=== PATIENT | female | born 1995 | race Caucasian/White ===

== ENCOUNTER → 2016-12-29 | Outpatient (CLI) | payer MEDICAID, SELFPAY ==
[~2016-12-29] MED LIST: MYLASSUD PO; NICO14PA TD; NICO21DI5 TD; NO HOME MEDS; NORCOTAB PO; PANT40TA2 PO; REGL5TAB2 PO; SUCR1TA PO; TUMS500C PO
== END ==
LOC: M OUTALCOH 08:56
PROVIDERS: ATTEND Psychiatry & Neurology Psychiatry
DX: F11.20 Opioid dependence, uncomplicated (principal)

== ENCOUNTER → 2018-03-23 | Outpatient (CLI) | payer MEDICAID, SELFPAY ==
[2018-03-23 11:37] LABS: HEMATOCRIT 38.8 % (36.0-47.0); HEMOGLOBIN 12.9 g/dl (12.0-15.5); MEAN CORPUSCULAR HEMOGLOBIN 31.2 pg (27.0-33.0); MEAN CORPUSCULAR HGB CONC 33.2 g/dl (32.0-36.5); MEAN CORPUSCULAR VOLUME 93.7 fl (80.0-96.0); PLATELET COUNT, AUTOMATED 253 10^3/uL (150-450); RED BLOOD COUNT 4.14 10^6/uL (4.00-5.40); RED CELL DISTRIBUTION WIDTH 13.2 % (11.5-14.5); WHITE BLOOD COUNT 12.5 10^3/uL (4.0-10.0)
[2018-03-23 11:58] LABS: ALBUMIN 3.7 GM/DL (3.2-5.2); ALBUMIN/GLOBULIN RATIO 1.16 (1.00-1.93); ALKALINE PHOSPHATASE 84 U/L (45-117); ALT/SGPT 19 U/L (12-78); ANION GAP 5 MEQ/L (8-16); AST/SGOT 16 U/L (7-37); BILIRUBIN,TOTAL 0.3 MG/DL (0.2-1.0); BLOOD UREA NITROGEN 6 MG/DL (7-18); CALCIUM LEVEL 8.7 MG/DL (8.5-10.1); CARBON DIOXIDE LEVEL 27 MEQ/L (21-32); CHLORIDE LEVEL 109 MEQ/L (98-107); CREATININE FOR GFR 0.85 MG/DL (0.55-1.30); GLOMERULAR FILTRATION RATE > 60.0 (>60); GLUCOSE, FASTING 128 MG/DL (70-100); POTASSIUM SERUM 4.1 MEQ/L (3.5-5.1); SODIUM LEVEL 141 MEQ/L (136-145); TOTAL PROTEIN 6.9 GM/DL (6.4-8.2)
[2018-03-23 12:12] LABS: HEPATITIS B SURFACE ANTIGEN NEGATIVE (NEGATIVE)
[2018-03-23 12:40] LABS: HEPATITIS C VIRUS ABY INDEX < 0.0 INDEX (<0.8); HIV 1&2 SCREEN CENTAUR NEGATIVE (NEGATIVE)
[2018-03-23 13:19] LABS: CHLAMYDIA DNA AMPLIFICATION NEGATIVE (NEGATIVE); GC DNA AMPLIFICATION NEGATIVE (NEGATIVE)
== END ==
LOC: M LAB 10:35
DX: F11.20 Opioid dependence, uncomplicated (principal)
CPT/HCPCS: 93005

== ENCOUNTER 2020-04-04 23:30 | Emergency (ER) | payer MEDICAID, OTHER, SELFPAY ==
[~2020-04-04] VITALS: Ht 175.3 cm; Wt 63.6 kg
[~2020-04-04 23:30] MED LIST changes: +HYDR-3715 PO; -NICO21DI5 TD; +NICO21DI6 TD; -NORCOTAB PO; -PANT40TA2 PO; +PANT40TA3 PO
[2020-04-05 01:25] LABS: HEMATOCRIT 40.4 % (36.0-47.0); HEMOGLOBIN 12.6 g/dl (12.0-15.5); MEAN CORPUSCULAR HEMOGLOBIN 29.2 pg (27.0-33.0); MEAN CORPUSCULAR HGB CONC 31.2 g/dl (32.0-36.5); MEAN CORPUSCULAR VOLUME 93.5 fl (80.0-96.0); PLATELET COUNT, AUTOMATED 328 10^3/uL (150-450); RED BLOOD COUNT 4.32 10^6/uL (4.00-5.40); WHITE BLOOD COUNT 10.5 10^3/uL (4.0-10.0)
[2020-04-05 01:46] LABS: HCG, SERUM QUALITATIVE NEGATIVE (NEGATIVE)
[2020-04-05 01:52] LABS: AMPHETAMINES LEVEL URINE NEGATIVE (NEGATIVE); BARBITURATES URINE NEGATIVE (NEGATIVE); BENZODIAZEPINES URINE NEGATIVE (NEGATIVE); CANNABINOIDS URINE POSITIVE (NEGATIVE); COCAINE METABOLITE URINE NEGATIVE (NEGATIVE); METHADONE URINE NEGATIVE (NEGATIVE); OPIATES URINE POSITIVE (NEGATIVE); PHENCYCLIDINE URINE NEGATIVE (NEGATIVE)
[2020-04-05 02:03] LABS: ACETAMINOPHEN LEVEL < 2.0 UG/ML (10.0-30.0); ALBUMIN 3.3 GM/DL (3.2-5.2); ALT/SGPT 81 U/L (12-78); BILIRUBIN,DIRECT 0.1 MG/DL (0.0-0.2); BILIRUBIN,TOTAL 0.2 MG/DL (0.2-1.0); BLOOD UREA NITROGEN 10 MG/DL (7-18); CALCIUM LEVEL 8.5 MG/DL (8.5-10.1); CARBON DIOXIDE LEVEL 32 MEQ/L (21-32); CHLORIDE LEVEL 106 MEQ/L (98-107); CREATININE FOR GFR 0.62 MG/DL (0.55-1.30); ETHYL ALCOHOL (ETHANOL) < 0.003 % (0.000-0.010); GLOMERULAR FILTRATION RATE > 60.0 (>60); GLUCOSE, FASTING 96 MG/DL (70-100); POTASSIUM SERUM 3.8 MEQ/L (3.5-5.1); SALICYLATE LEVEL < 1.7 MG/DL (5.0-30.0); SODIUM LEVEL 141 MEQ/L (136-145); TOTAL PROTEIN 7.1 GM/DL (6.4-8.2)
[2020-04-05 03:47] VITALS: BP 124/93
== END 2020-04-05 03:53 | disposition home or self-care (01) ==
LOC: M ED 23:30
DX: F43.8 Other reactions to severe stress (principal); F41.9 Anxiety disorder, unspecified; F32.9 Major depressive disorder, single episode, unspecified; G47.00 Insomnia, unspecified; F50.9 Eating disorder, unspecified; F17.210 Nicotine dependence, cigarettes, uncomplicated; F19.10 Other psychoactive substance abuse, uncomplicated
CPT/HCPCS: 36415; 80048; 80076; 80307; 84443; 84703; 85027; 99284; G0480

== ENCOUNTER 2020-11-08 00:27 | Day surgery (SDC) | payer OTHER ==
[~2020-11-08] VITALS: Ht 170.2 cm; Wt 61.4 kg
[~2020-11-08 00:27] MED LIST changes: +PANT40TA29 PO; -PANT40TA3 PO
[2020-11-08] MEDS ORDERED: NS 1,000 ML IV ONE (00:45)
[2020-11-08] MEDS ORDERED: ISOVUE-370 76% 100ML VIAL As Ordered ONE (00:52)
[2020-11-08 01:05] LABS: BASO % 0.4 % (0.0-1.0); EOS # 0.1 10^3/uL (0.0-0.5); EOS % 1.3 % (0.0-3.0); HEMATOCRIT 34.7 % (36.0-47.0); HEMOGLOBIN 10.9 g/dl (12.0-15.5); LYMPH # 2.9 10^3/uL (1.5-5.0); LYMPH % 30.2 % (24.0-44.0); MEAN CORPUSCULAR HEMOGLOBIN 26.8 pg (27.0-33.0); MEAN CORPUSCULAR HGB CONC 31.4 g/dl (32.0-36.5); MEAN CORPUSCULAR VOLUME 85.3 fl (80.0-96.0); MONO # 0.5 10^3/uL (0.0-0.8); MONO % 4.8 % (0.0-5.0); NEUTROPHILS % 62.9 % (36.0-66.0); PLATELET COUNT, AUTOMATED 406 10^3/uL (150-450); RED BLOOD COUNT 4.07 10^6/uL (4.00-5.40); WHITE BLOOD COUNT 9.6 10^3/uL (4.0-10.0)
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
[2020-11-08 01:23] LABS: HCG, SERUM QUALITATIVE NEGATIVE (NEGATIVE)
[2020-11-08] MEDS ORDERED: ONDANSETRON 4MG/2ML VIAL As Ordered ONE (01:25)
[2020-11-08] MEDS ORDERED: MORPHINE 4 MG/ML 1ML VIAL/SYRINGE (J2270) As Ordered ONE (01:25)
[2020-11-08 01:27] LABS: BLOOD UREA NITROGEN 9 MG/DL (7-18); CALCIUM LEVEL 8.4 MG/DL (8.5-10.1); CARBON DIOXIDE LEVEL 28 MEQ/L (21-32); CHLORIDE LEVEL 106 MEQ/L (98-107); GLOMERULAR FILTRATION RATE > 60.0 (>60); GLUCOSE, FASTING 78 MG/DL (70-100); POTASSIUM SERUM 4.2 MEQ/L (3.5-5.1); SODIUM LEVEL 139 MEQ/L (136-145)
[2020-11-08] MEDS: MORPHINE 4 MG/ML 1ML VIAL/SYRINGE (J2270) IV PRN ×2 (01:28→02:46)
[2020-11-08] MEDS ORDERED: ONDANSETRON 4MG/2ML VIAL IV ONE (01:30)
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
[2020-11-08] MEDS ORDERED: ceFAZolin SOD 1 GM in D5W MINI-BAG PLUS 50 ML IV ONE (02:45)
[2020-11-08 03:33] LABS: RSV AMPLIFICATION NEGATIVE (NEGATIVE)
[2020-11-08] MEDS ORDERED: TRANEXAMIC ACID INJection 1,000 MG in D5W 100 ML IV ONE (04:30)
[2020-11-08] MEDS ORDERED: MORPHINE 4 MG/ML 1ML VIAL/SYRINGE (J2270) IV PRN (05:15)
[2020-11-08] MEDS ORDERED: MIDAZOLAM INJ 2MG/2ML VIAL (J2250 PER 1MG) As Ordered ONE (05:41)
[2020-11-08] MEDS ORDERED: fentaNYL 100 MCG/2 ML INJECTION (J3010) As Ordered ONE (05:42)
[2020-11-08] MEDS ORDERED: propofoL 200 MG/20 ML VIAL As Ordered ONE (05:43)
[2020-11-08] MEDS ORDERED: ROCURONIUM BROMIDE 50 MG/5 ML VIAL As Ordered ONE (05:43)
[2020-11-08] MEDS ORDERED: LIDOCAINE 2% 100MG/5ML SDV (FOR ANES.) As Ordered ONE (05:43)
[2020-11-08] MEDS ORDERED: ACETAMINOPHEN 1000MG 100ML IV BTL (OFIRMEV) (J0131 PER 10MG) ONE (06:29)
[2020-11-08] MEDS ORDERED: ceFAZolin 2 GM/D5W 50 ML IV BAG (J0690 PER 500MG) ONE (06:29)
[2020-11-08] MEDS ORDERED: ONDANSETRON 4MG/2ML VIAL ONE (06:33)
[2020-11-08] MEDS ORDERED: dexameTHASONE 4 MG/ML 1ML VIAL (J1100 PER 1MG) ONE (06:33)
[2020-11-08] MEDS ORDERED: propofoL 200 MG/20 ML VIAL ONE (06:43)
[2020-11-08] MEDS ORDERED: ceFAZolin 2 GM/D5W 50 ML IV BAG (J0690 PER 500MG) IV ONE (06:45)
[2020-11-08] MEDS ORDERED: ESMOLOL INJ 100MG/10ML VIAL ONE (06:46)
[2020-11-08] MEDS ORDERED: PHENYLephrine HCL 500 MCG/5 ML (100MCG/ML) SYRINGE (J2370) ONE (06:58)
[2020-11-08] MEDS: fentaNYL 100 MCG/2 ML INJECTION (J3010) IV PRN ×4 (07:37→07:53)
[2020-11-08] MEDS: oxyCODONE 5MG TAB PO PRN ×2 (07:37→08:09)
[2020-11-08] MEDS: HYDROMORPHONE HCL 0.5 MG/ 0.5 ML SYRINGE (J1170 PER 1) IV PRN ×2 (08:00→08:05)
[2020-11-08 08:10] VITALS: BP 119/72
[2020-11-08] MEDS ORDERED: ONDANSETRON 4MG/2ML VIAL IV PRN (09:15)
[2020-11-08] MEDS ORDERED: LR 1,000 ML IV SCH (09:15)
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
== END 2020-11-08 08:22 | disposition home or self-care (01) ==
LOC: M ED 00:27 → M SDC 05:36 → M ED 06:14 → M SDC 08:22
PROVIDERS: ATTEND Orthopaedic Surgery
DX: S71.111A Laceration without foreign body, right thigh, initial encounter (principal); I77.2 Rupture of artery; X99.1XXA Assault by knife, initial encounter; Y92.89 Other specified places as the place of occurrence of the external cause; Y99.9 Unspecified external cause status; F17.218 Nicotine dependence, cigarettes, with other nicotine-induced disorders; F19.20 Other psychoactive substance dependence, uncomplicated; Y93.9 Activity, unspecified
CPT/HCPCS: 20103; 72170; 80047; 80048; 84702; 84703; 85025; 86850; 86900; 86901; 87631; 94760; 96365; 96367; 96375; 96376; 99285; J0131; J0690; J1100; J1170; J2250; J2270; J2370; J2405; J3010; Q9967

== ENCOUNTER 2020-12-01 11:10 | Emergency (ER) | payer OTHER ==
[~2020-12-01] VITALS: Ht 172.7 cm; Wt 62.7 kg
[2020-12-01] MEDS ORDERED: NS 1,000 ML IV ONE (12:15)
[2020-12-01 12:24] LABS: BASO # 0.1 10^3/uL (0.0-0.2); BASO % 0.5 % (0.0-1.0); EOS % 0.3 % (0.0-3.0); HEMATOCRIT 33.9 % (36.0-47.0); HEMOGLOBIN 10.3 g/dl (12.0-15.5); LYMPH # 2.5 10^3/uL (1.5-5.0); MEAN CORPUSCULAR HEMOGLOBIN 26.9 pg (27.0-33.0); MEAN CORPUSCULAR HGB CONC 30.4 g/dl (32.0-36.5); MEAN CORPUSCULAR VOLUME 88.5 fl (80.0-96.0); MONO # 0.8 10^3/uL (0.0-0.8); MONO % 7.9 % (0.0-5.0); NEUTROPHILS # 6.3 10^3/uL (1.5-8.5); NEUTROPHILS % 64.9 % (36.0-66.0); PLATELET COUNT, AUTOMATED 246 10^3/uL (150-450); RED BLOOD COUNT 3.83 10^6/uL (4.00-5.40); WHITE BLOOD COUNT 9.7 10^3/uL (4.0-10.0)
[2020-12-01 12:48] LABS: BLOOD UREA NITROGEN 9 MG/DL (7-18); CALCIUM LEVEL 8.7 MG/DL (8.5-10.1); CARBON DIOXIDE LEVEL 28 MEQ/L (21-32); CHLORIDE LEVEL 103 MEQ/L (98-107); CREATININE FOR GFR 0.52 MG/DL (0.55-1.30); GLOMERULAR FILTRATION RATE > 60.0 (>60); GLUCOSE, FASTING 98 MG/DL (70-100); POTASSIUM SERUM 4.4 MEQ/L (3.5-5.1); SODIUM LEVEL 137 MEQ/L (136-145)
--- OUTSIDE RECORDS SUMMARY | 2020-12-01 12:52 | CCD | Continuity of Care Document ---
Author Author Harmony OLIVIA M.D. 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 Social History Type Date Description Comments Sex Unknown Allergies, Adverse Reactions, Alerts Active Allergies Reaction Severity Comments Date NKDA 03/11/2016 Wool 06/29/2017 Medications Description No Active Medications Immunizations Description No Information Available Vital Signs Date Vital Result Comment 06/11/2018 10:37am BP Systolic 112 mmHg BP Diastolic 70 mmHg Heart Rate 100 /min Respiratory Rate 18 /min 06/04/2018 1:38pm BP Systolic 122 mmHg BP Diastolic 80 mmHg Heart Rate 108 /min Respiratory Rate 18 /min Body Temperature 98.3 F Results Description No Information Available Procedures Description No Information Available Medical Devices Description No Information Available Encounters Description No Information Available Assessments Description No Information Available Plan of Treatment No Information Available Functional Status Description No Information Available Mental Status Description No Information Available Referrals Description No Information Available
--- OUTSIDE RECORDS SUMMARY | 2020-12-01 12:52 | CCD ---
Author Author [facility] Organization [facility] Address Unknown Phone Unavailable Care Team Providers Care Fitness Supervisor Name Role Phone Mark SAMSON MD Unavailable Unavailable Harmony Chin Unavailable Rita HUTSON Jr DO Unavailable Unavailable Rita HUTSON Jr DO Unavailable Unavailable Rita HUTSON Jr DO Unavailable Unavailable Rita HUTSON Jr DO Unavailable Unavailable Rita HUTSON Jr DO Unavailable Unavailable Rita HUTSON Jr DO Unavailable Unavailable [facility] Unavailable [phone] [facility] Unavailable [phone] Re-disclosure Warning The records that you are about to access may contain information from federally-assisted alcohol or drug abuse programs. If such information is present, then the following federally mandated warning applies: This information has been disclosed to you from records protected by federal confidentiality rules (42 CFR part 2). The federal rules prohibit you from making any further disclosure of this information unless further disclosure is expressly permitted by the written consent of the person to whom it pertains or as otherwise permitted by 42 CFR part 2. A general authorization for the release of medical or other information is NOT sufficient for this purpose. The Federal rules restrict any use of the information to criminally investigate or prosecute any alcohol or drug abuse patient.The records that you are about to access may contain highly sensitive health information, the redisclosure of which is protected by Article 27-F of the [facility] Public Health law. If you continue you may have access to information: Regarding HIV / AIDS; Provided by facilities licensed or operated by the [facility] Office of Mental Health; or Provided by the [facility] Office for People With Developmental Disabilities. If such information is present, then the following [facility] mandated warning applies: This information has been disclosed to you from confidential records which are protected by state law. State law prohibits you from making any further disclosure of this information without the specific written consent of the person to whom it pertains, or as otherwise permitted by law. Any unauthorized further disclosure in violation of state law may result in a fine or assisted sentence or both. A general authorization for the release of medical or other information is NOT sufficient authorization for further disc losure. Allergies and Adverse Reactions Type Description Substance Reaction Status Data Source(s ) SYSTEMIC NO KNOWN ALLERGIES NO KNOWN ALLERGIES [facility] SYSTEMIC NO ALLERGIES ON FILE NO ALLERGIES ON FILE [facility] Encounters Encounter Providers Location Date Indications Data Source(s ) 12/30/2019 10:25:34 AM [facility] EMERGENCY Attender: BINTA HUTSON Jr 2E-ED 12/14 06:16:28 AM EST - 12/26/2019 06:35:00 AM [facility] Patient discharged. 11/29/2019 03:24:35 PM [facility] EMERGENCY Attender: PATRICE SAMSON MD 5F-ER 11/13 02:51:03 PM EST - 11/29/2019 03:27:00 PM [facility] Patient discharged. 11/29/2019 02:48:58 PM [facility] Shelter - Case Management Attender: [facility] Shelter 11/08/2019 08:20:00 AM EST - 11/08/2019 08:20:00 AM EST [facility] ([facility]) Attender: [facility] 12:00:00 AM EST [facility] ([facility]) Attender: Harmony Chin 10/23/2019 12:00:[address] [facility] ([facility]) Brief Individual Psychotherapy - 20 min Attender: Harmony wills [facility] 10/21/2019 12:15:00 PM EST - 10/21/2019 12:15:00 PM EST [facility] ([facility]) Outpatient ALL 10/11/2019 01:23:00 PM EST [facility] Insurance Providers Payer name Policy type / Coverage type Policy ID Covered green party ID Covered green party's relationship to combs Policy Combs Plan Information TED [id number] SP [id number] TED [facility] O [id number] S [id number] MEDICAID [id number] SP [id number] MEDICAID [id number] SP [id number] TED [id number] SP [id number] SELF PAY ONLY UNAVAILABLE SP UNAV AILABLE [facility] I [id number] Self [id number] UH I [id number] Self [id number] SELF PAY UNAVAILABLE UNAVAILA BLE [facility] [id number] SP [id number] [facility] COMM[facility] PL[facility] MCDO [id number] SP [id number] [facility] O [id number] S [id number] MEDICAID [id number] SP [id number] Problems, Conditions, and Diagnoses Code Display Name Description Problem Type Effective Dates Data Source(s) F41.1 Generalized anxiety disorder Generalized Anxiety Disor nury Condition 11/08/2019 12:00:00 AM EST [facility] ([facility]) F11.20 Opioid dependence, uncomplicated Opioid Use Disorder, Moderate Condition 11/08/2019 12:00:00 AM EST [facility] ([facility]) T50.901A Poisoning by unspecified johan gs, medicaments and biological substances, accidental (unintentional), initial encounter Poisoning by unspecified drugs, medicaments and biological substances, accidental (unintentional), initial encounter Diagnosis 12/26/2019 06:16:28 AM [facility] Drug Overdose Drug Overdose Diagnosis 12/26/2019 06:16:28 AM [facility] ems ems Diagnosis 12/26/2019 06:16:[address] [facility] T40.1X1A Poisoning by heroin, accidental (uninten tional), initial encounter Poisoning by heroin, accidental (unintentional), initial encounter Diagnosis 11/29/2019 02:51:03 PM [facility] ems other ems other Diagnosis 11/29/2019 02:51:[address] [facility] Surgeries/Procedures Procedure Description Date Indications Data Source(s) Shelter - Case Management 11/08/2019 12:00: 00 AM EST - 11/08/2019 12:00:00 AM EST [facility] ([facility]) Shelter - Case Management 11/08/2019 12:00:00 AM EST [facility] ([facility]) Brief Individual Psychotherapy - 20 min 10/23/2019 12:00:00 AM EST - 10/23/2019 12:00:00 AM EST [facility] ([facility]) Brief Individual Psychotherapy - 20 min 10/21/2019 12: 00:00 AM EST [facility] ([facility]) Results ID Date Data Source [id number] 11/08/2020 02:48:00 AM EST [facility] Name Value Range Interpretation Code Description Data Shannon rce(s) Supporting Document(s) SARS coronavirus 2 RNA [Presence] in Res piratory specimen by MARIYA with probe detection [facility] This lab was ordered by [facility] a nd reported by [facility]. ID Date Data Source [id number] 12/26/2019 06:42:14 AM EST [facility] Name Value Range Interpretation Code Description Data Shannon rce(s) Supporting Document(s) ED Provider Notes [facility] EQVNYr5yUqCKLlJl06/IQVubXICmp9YqXVczLDg0EQftGJVsW3FxWWU2xY0wXOX2AWvMNmIsCoBxWnLy lbm [file] t7GeznX4uzJmSLqpHACcND3ZKXUJY9VMXa== ID Date Data Source [id number] 12/26/2019 06:28:38 AM EST [facility] Name Value Range Interpretation Code Description Data Shannon rce(s) Supporting Document(s) ED Triage Notes [facility] RUKLBh2qCcHGGmVa33/ANFqtGKDrd5RcNOcuNQb2HKjqJVUzR1YdQLL3jT0tOWK6HNqPHiMuXfLiCcAu lbm [file] MOSzTpDV7HKVz= ID Date Data Source [id number] 11/29/2019 11:08:34 PM EST [facility] Name Value Range Interpretation Code Description Data Shannon rce(s) Supporting Document(s) ED Provider Notes [facility] IUDOCz0dKjFCJePe78/NBVqmNHCjc9YgMKxeMRe7ALmnVXDaY7KcXCK6oT0lZBF0OBqWHoRnDqEzAFC6 lbm [file] XdXtly2kfQ7Um2E4IbBil1Pnfctb9QGV9Y3BfFwPsGksqYRgfN+n0KwjXI9U+Jose Guadalupe/NXtb8FWH2UhEtEWk oKcaTcDOlaAvNc8n4ZsSzWTVCjrCjYzaqky91lazc6i1fxk2Ud+5SbctQi6WjhPtUHY1FjmvhdK374Y2 FFX6Zo6xIwY6f3wg9Y57XkFVlCsSNhzYZWxc2RMWQl NVikKqsoup7epb6fshX1H5aZ71WnEHRWJ2zRw8FvREDuno2hm24hiJ7Q97hmvwf9bbcKvclBcXIcnFWm 2NxFt0RXeFg71dPr5aUR4GphniYnO4/WxS2glt91gEQpUCix9pxo49r2gFBCzX2ln74/58lAX753qgdm /wpCg4WdC+R8hxnad0PW4u+JC47snkb9UGZe+JPXIb aznl2QY5EzpZKgMBAGg1wShanjlThSlkB094j20XQ7gP1qA2dVALpIbyc6G5qlHRG070TmygjEAQD1Om s09etY5ZWsFDlV/eW2tUV20573m5XmDC7V6iloCS3Sv1Bw27nxNtWFA8Ll5UBcgMnn0LrjExXNgLYlY+ Maximo/H4yKWfEmXydY4Txe/U/rOfiVDDX6j+s/ABGpEdB [file] ICAgICAgICAgICAgICAgICAgICAgICAgICAgICAgICAgICAgICAgICAgICAgICAgICAgICAgICAgICAg YBBzGDAeSXWcBMNoOVLeRUEwSH8VTAAnRYLfJKKwML AgICAgICAgICAgICAgICAgICAgICAgICAgICAgICAgICAgICAgICAgICAgICAgICAgICAgICAgICAgIC ZjRESoSIMnISVpGKKiMZBtTKVsYZVnVBLkOZBcJZ7TPTNaUMNaVANsWVIoDTEyKWOxCEIyBARfGRVcMR AgICAgICAgICAgICAgICAgICAgICAgICAgICAgICAg TMVpUPOwXFMuJTHbHGFwBVUeYEFvBDVeAFKbVQEuWJMuUARiRJOmRP8SXWTtVGPhIDMnBDUyPGJiEZAk ICAgICAgICAgICAgICAgICAgICAgICAgICAgICAgICAgICAgICAgICAgICAgICAgICAgICAgICAgICAg GLEbKHLhGRClBNLxTZDfHQXmTJGyMD1OEEFlHTUbRS AgICAgICAgICAgICAgICAgICAgICAgICAgICAgICAgICAgICAgICAgICAgICAgICAgICAgICAgICAgIC HoHRUjEOQaDXNvYNExAOWvYGLyVEAzSHUcLCSrGUYnXY2KAFEzHUExJTSsEFBjMGJlVTZzBWQoGORoIM AgICAgICAgICAgICAgICAgICAgICAgICAgICAgICAg YJBsMKCmXDLzEUCnGHJtCMAzUABxKNMsNXLsQDZkZVFqBQXaXIIiNNTcOV2NTBEbEFPgNXQsWOBfPOZp ICAgICAgICAgICAgICAgICAgICAgICAgICAgICAgICAgICAgICAgICAgICAgICAgICAgICAgICAgICAg CQDkRAUxEMGqWPVjIFAcKBCqOSSmVYPtKG0WWQXlAI AgICAgICAgICAgICAgICAgICAgICAgICAgICAgICAgICAgICAgICAgICAgICAgICAgICAgICAgICAgIC TnOEAfAXMmZIRqBQBmBWYnSSDaUYYqLOEfVNEnUTDyCMHkOF8OUEXnVHNtTAXrOTCuORJrHUTlWCEsMH AgICAgICAgICAgICAgICAgICAgICAgICAgICAgICAg INPaZMMzKXBwBQBxFHAjZUGbKVGpGTHaFNNaDDUuUEYsUYUjWIKlJANmKELwIB0JDBHwBKKoOTMjJQYn ICAgICAgICAgICAgICAgICAgICAgICAgICAgICAgICAgICAgICAgICAgICAgICAgICAgICAgICAgICAg NJVgNIByMHKvHZYuVWCpLVZfCCLgJEKfJWWbAZ9GIE 95oXDvs6O7ELClVJ3cvye/Pv0XESzpanHoxZBvDA2GZbBzZO9ryx7KGzAyXQ3mbv5LVCjYCbJkN5C6yL DfEYMiGWWTOuUaE25bTGncDb44LXanRXVwOaRkXLr5Sp3EKvSnM6raWHUcMpH2RDTsHsT3WGHhDxE5BX SgJtUuGWNaGIVkFH9ZUPZlB385yiVxPK3SOw8TJtVz KF4cra6SOimtMBNpJclGSdn2CBzjZV7CwVNhjXEgDDRxEVPOVcGlG0waj0KcIkplAWSCZWyyRS6Oe9Vg dCAxDQo+Fw9HTE7jw6GjCCdtUKTsQA4msv2QNTuONnSrD6MpiAjzUMTCSDPpg7IfKVUmYX1wvSMqOPL5 ORAbxA29xFbnIAI6kGuwZDXAMWIhjKNtUoO2RlNpZf QmVQX8FDFuDT6iWDfbNF4DEGC1RMvaSNTyDVCeX7oISmBuRIneSIXudMhgMK9REjZbR1XtwmIisWTjYq AwIFINCj4+RQjsbdLoYvxONaI3XENpr9EwTVb1EA9BGWEtILyfIF2KLRCynB9aHAauBA7XClOiALNtSY OQIuYvR34lySUhCMp7F0WpDqNlDEFvGqveZZFnTKso TmFtZXMgWyBdDQogID4+ID4+GYqdVB8BRYecqzNjGBPlIt4OOHMlQECpFZ1cTFHnYLZbP5C4lFyoJMZC ZuVxT4kjuvyxJT6uKGHyO142uJegjjQrHMF7QMDvVe0FTSWtYEV8PCTlsJOrKuNaHOCQHRwsUW9XeOIg YHQ1tW8pVDjtZETeGBBmI9pGQwPzrHetJG21mDqrcj VsbCBdDQo+Ew6EIG6gf8FwOPc9iqBaSUuoDZVxDWysOBLuXBFwISQsLAP3CWE1NHBLQmImKBKjXCYeKI idXECmKZQoqz7EEGBpYEAkDVXbImGdMYVdNIEzFSkbFGCpDLBtPTR5SBVyFDKpFU8YGxXeTTOoNCPiHD fnSRWnQSIecv2GCQJpVYWcAuf0EYIrAGRtJNZvRSzx TBClNIOtRCU8TUVtNKOrNC7PUuSbXOCbGCFuAoGtLUVeHJAddq5ZFQUpZCJnGEB0FACoNKZuFSOrOCxk WUTfTWC7XZJxPAZqVSTpGV8QOcSmCEUbLIp4LOYnZFWkSZGjtg8BZUWgIWRbFGZvGkHqQWUgHPQmBQua ARHmTOZ2WQDfHOOmBMVrDX4BOgAiWVYuAXU9GPJgIB MzJXMhzp2VSLBgPKWbOWs4CvHnHUMqYPPoXJgzONZxLYGzQKfcHKBuRECyPE1RWdBcFTXdMQRwWhAdZX MmZRPgjr7KNZXgLRVlZyKpAIWjMZUaTBRzTDdwWKRtPKRwAALsAZPuGTCsQB4DMgPqHFNcGOL2DiQzBN TcXVAovr2KSRTcHBLtRxD8AbEaKUFgNVLkYTllUTTh YEElBJH2YOAyHYLgCT3HWfCwTMEyCWG3GiVsWZHiPXUips0YDGHyUDWqVRFfIxJfIZGiQJLbXAulRPLf MWR8WpQoYSRyOVQhCE7JEpDcPNKzPqv3FXkfHFEwGROybi8JCSNzZATaIzkaHpDiMRYkPDRmCBrbQFTy MJC4HQB3EWMpDOUvBZ6JRgFzBTHnOzvcFXCgVMPoVE Bfge0QUKXyTLOeLZYrADYyTFXzXJWkKWtyBTXuOPN3GSY7WINsTEPmVL6CHzFwALBgIhy2PjHrNCAgGY Zodt4YXRDeHGCoSYpuUOJzQLPzPQPeJWiaJGAsSGQdLfAtRFYhTJLaWW3QEhToOFQaWpF9KlfqQSTvTD Whke8EIFLoWCRtWMUuWXYxQHDjGIQzPFbqVZUcTFHb OHi5LZVpWLRzYM7VOmJaNKOdQpUvDeLlZXCjXBYjmx7OMYMpWKNbPwXtPZLpIABhCTVfZPcxUVUfXIVc RhN8AKNyFRIkMJ3NFdBfHRhgSBJGDvg0IRloR6c3QIE5AL6OL9Kpd3BbYmzfRFZXVDbkTW7mbqTgHPDx Fj9DF8iLDet5PtNeAGpmAUH5QzGbFXJ0WmBkSMtqAT JaUXSwTQP9EP7vDYozN2NmE1R7MII6ITMlCiYvIUDaWhT1AADpRHRbIgt9KbPxZR2LZh0TEiS9AIA5pU LlKx6IWaB3BSTDNbHqKK1NXPf= ID Date Data Source [id number] 11/29/2019 03:07:27 PM EST [facility] Name Value Range Interpretation Code Description Data Shannon rce(s) Supporting Document(s) ED Triage Notes [facility] GEFABb0pYiKIHfEo32/TGWzsIFXsl4LoSSmnYXw6FQcyNBFeL5OpZZA1aX2sRRL9TXpKZjFxMwHaIAA5 lbm [file] GaGLZ6WQPsL0TaBXQ5DMSxAkT9XWPdJq4iGXAUJj7+NOnryACarFdqWPBROyd2XRVDWgAxKM2ZCLe= Procedure Social History Code Duration Value Status Description Data Source(s ) Smoking 11/29/2019 12:00:00 AM EST Current every day smoker co mpleted Current every day smoker [facility] Smoking 11/08/2019 12:00:00 AM EST Unknown if ever smoked comp leted Unknown if ever smoked [facility] ([facility]) Smoking 10/23/2019 12:00:00 AM EST Unknown if ever smoked comp leted Unknown if ever smoked [facility] ([facility]) Vital Signs ID Date Data Source UNK Name Value Range Interpretation Code Description Data Source(s) Oxygen saturation in Arterial blood by Pulse oximetry 95 % 95 % [facility] Body mass index (BMI) [Ratio] 21.29 kg/m2 21.29 kg/m2 [facility] Body weight 63.504 kg 63.504 kg [facility] Body height 172.7 cm 172.7 cm [facility] Respiratory rate 18 /min 18 /min [facility] Body temperature 36.[address] [facility] Heart rate 92 /min 92 /min [facility] Diastolic blood pressure 79 mm[Hg] 79 mm[Hg] [facility] Systolic blood pressure 131 mm[Hg] 131 mm[Hg] [facility] Oxygen saturation in Arterial blood by Pulse oximetry 100 % 100 % [facility] Body mass index (BMI) [Ratio] 22.15 kg/m2 22.15 kg/m2 [facility] Body weight 68.04 kg 68.04 kg [facility] Body height 175.3 cm 175.3 cm [facility] Respiratory rate 19 /min 19 /min [facility] Body temperature 36.[address] [facility] Heart rate 108 /min 108 /min [facility] Diastolic blood pressure 90 mm[Hg] 90 mm[Hg] [facility] Systolic blood pressure 125 mm[Hg] 125 mm[Hg] [facility]
--- OUTSIDE RECORDS SUMMARY | 2020-12-01 12:52 | CCD | Continuity of Care Document ---
Author Author Harmony OLIVIA M.D. Organization Unknown Address [address] [place] [address] Phone [phone] Problems Active Problems Provider Date Amphetamine abuse [...]
[2020-12-01] MEDS ORDERED: LIDOCAINE 2% MDV 20ML VIAL SC ONE (13:00)
[2020-12-01] MEDS ORDERED: DALBAVANCIN 1,500 MG in D5W 250 ML IV ONE (15:00)
[2020-12-01 16:21] VITALS: BP 130/68
== END 2020-12-01 16:24 | disposition home or self-care (01) ==
LOC: EEVIPCON 11:10 → M ED 11:10
DX: Z48.02 Encounter for removal of sutures (principal); L02.511 Cutaneous abscess of right hand; T81.49XA Infection following a procedure, other surgical site, initial encounter; X58.XXXA Exposure to other specified factors, initial encounter; Y92.89 Other specified places as the place of occurrence of the external cause; F11.10 Opioid abuse, uncomplicated; F17.210 Nicotine dependence, cigarettes, uncomplicated
CPT/HCPCS: 10060; 80048; 83605; 84702; 85025; 87040; 87070; 87077; 87186; 87205; 96361; 96365; 99284; J0875

== ENCOUNTER 2022-10-23 20:46 | Emergency (ER) | payer OTHER ==
[~2022-10-23] VITALS: Ht 175.3 cm; Wt 66.9 kg
[2022-10-23] MEDS ORDERED: NS 1,000 ML IV ONE (20:50)
[2022-10-23 21:54] LABS: RSV AMPLIFICATION NEGATIVE (NEGATIVE)
[2022-10-23 21:57] LABS: BASO % 0.1 % (0.0-1.0); HEMATOCRIT 45.8 % (36.0-47.0); HEMOGLOBIN 15.7 g/dl (12.0-15.5); LYMPH # 2.2 10^3/uL (1.5-5.0); LYMPH % 10.7 % (24.0-44.0); MEAN CORPUSCULAR HGB CONC 34.3 g/dl (32.0-36.5); MEAN CORPUSCULAR VOLUME 87.4 fl (80.0-96.0); MONO # 1.5 10^3/uL (0.0-0.8); MONO % 7.3 % (2.0-8.0); NEUTROPHILS % 81.4 % (36.0-66.0); PLATELET COUNT, AUTOMATED 339 10^3/uL (150-450); RED BLOOD COUNT 5.24 10^6/uL (4.00-5.40); WHITE BLOOD COUNT 20.9 10^3/uL (4.0-10.0)
[2022-10-23 22:22] LABS: ACETAMINOPHEN LEVEL < 2.0 UG/ML (10.0-20.0); SALICYLATE LEVEL < 3.0 MG/DL (<30)
[2022-10-23 22:23] LABS: BILIRUBIN,DIRECT 0.2 MG/DL (<0.4); CPK CREATINE PHOSPHOKINASE 241 U/L (34-145)
[2022-10-23 22:25] LABS: THYROID STIMULATING HORMONE 1.277 uIU/ML (0.55-4.78)
[2022-10-23 22:40] LABS: HCG, SERUM QUALITATIVE NEGATIVE (NEGATIVE)
[2022-10-23 22:43] LABS: ALBUMIN 3.9 G/DL (3.2-5.2); ALKALINE PHOSPHATASE 73 U/L (46-116); ALT/SGPT 28 U/L (7.0-40); AST/SGOT 29 U/L (<34); BILIRUBIN,TOTAL 0.6 MG/DL (0.3-1.2); BLOOD UREA NITROGEN 21 MG/DL (9-23); CALCIUM LEVEL 8.9 MG/DL (8.5-10.1); CARBON DIOXIDE LEVEL 22 MMOL/L (20-31); CHLORIDE LEVEL 101 MMOL/L (98-107); CREATININE FOR GFR 0.59 MG/DL (0.55-1.30); GLOMERULAR FILTRATION RATE > 60.0 (>60); GLUCOSE, FASTING 95 MG/DL (60-100); SODIUM LEVEL 137 MMOL/L (136-145); TOTAL PROTEIN 7.3 G/DL (5.7-8.2)
[2022-10-23 22:46] VITALS: BP 159/106
[2022-10-23 23:51] LABS: ETHYL ALCOHOL (ETHANOL) 0.003 % (0.000-0.010)
[2022-10-24 00:25] LABS: AMPHETAMINES LEVEL URINE NEGATIVE (NEGATIVE); BARBITURATES URINE NEGATIVE (NEGATIVE); CANNABINOIDS URINE NEGATIVE (NEGATIVE); COCAINE METABOLITE URINE NEGATIVE (NEGATIVE); METHADONE URINE NEGATIVE (NEGATIVE); OPIATES URINE NEGATIVE (NEGATIVE); PHENCYCLIDINE URINE NEGATIVE (NEGATIVE)
[2022-10-24 00:38] LABS: BENZODIAZEPINES URINE POSITIVE (NEGATIVE)
== END 2022-10-24 01:08 | disposition home or self-care (01) ==
LOC: M ED 20:46
DX: S02.40DA Maxillary fracture, left side, initial encounter for closed fracture (principal); J09.X2 Influenza due to identified novel influenza A virus with other respiratory manifestations; R45.1 Restlessness and agitation; X58.XXXA Exposure to other specified factors, initial encounter; Y92.149 Unspecified place in prison as the place of occurrence of the external cause; K02.9 Dental caries, unspecified; F19.10 Other psychoactive substance abuse, uncomplicated; F17.200 Nicotine dependence, unspecified, uncomplicated

== ENCOUNTER → 2023-04-03 | Outpatient (CLI) | payer MEDICAID, OTHER ==
[2023-04-03 17:41] LABS: ALBUMIN 3.8 G/DL (3.2-5.2); ALKALINE PHOSPHATASE 68 U/L (46-116); ALT/SGPT 83 U/L (7.0-40); AST/SGOT 38 U/L (<34); BILIRUBIN,TOTAL 0.4 MG/DL (0.3-1.2); BLOOD UREA NITROGEN 12 MG/DL (9-23); CALCIUM LEVEL 9.2 MG/DL (8.5-10.1); CARBON DIOXIDE LEVEL 24 MMOL/L (20-31); CHLORIDE LEVEL 106 MMOL/L (98-107); CREATININE FOR GFR 0.66 MG/DL (0.55-1.30); GLOMERULAR FILTRATION RATE > 60.0 (>60); GLUCOSE, FASTING 78 MG/DL (60-100); POTASSIUM SERUM 4.1 MMOL/L (3.5-5.1); SODIUM LEVEL 139 MMOL/L (136-145); TOTAL PROTEIN 6.9 G/DL (5.7-8.2)
[2023-04-03 17:55] LABS: HEPATITIS B SURFACE ANTIGEN NEGATIVE (NEGATIVE)
[2023-04-03 18:03] LABS: BASO # 0.1 10^3/uL (0.0-0.2); BASO % 0.8 % (0.0-1.0); EOS # 0.2 10^3/uL (0.0-0.5); EOS % 1.7 % (0.0-3.0); HEMATOCRIT 44.2 % (36.0-47.0); HEMOGLOBIN 14.4 g/dl (12.0-15.5); LYMPH # 2.7 10^3/uL (1.5-5.0); LYMPH % 29.5 % (24.0-44.0); MEAN CORPUSCULAR HEMOGLOBIN 29.6 pg (27.0-33.0); MEAN CORPUSCULAR HGB CONC 32.6 g/dl (32.0-36.5); MEAN CORPUSCULAR VOLUME 90.9 fl (80.0-96.0); MONO # 0.5 10^3/uL (0.0-0.8); MONO % 5.9 % (2.0-8.0); NEUTROPHILS # 5.6 10^3/uL (1.5-8.5); NEUTROPHILS % 61.9 % (36.0-66.0); PLATELET COUNT, AUTOMATED 204 10^3/uL (150-450); RED BLOOD COUNT 4.86 10^6/uL (4.00-5.40)
[2023-04-03 18:16] LABS: HEPATITIS B CORE ANTIBODY IGM NEGATIVE (NEGATIVE)
[2023-04-03 18:20] LABS: HEPATITIS C VIRUS ABY INDEX > 11.0 INDEX (<0.8)
[2023-04-03 19:19] LABS: AMORPHOUS SEDIMENT SMALL (NEGATIVE); BACTERIA, URINE AUTO NEGATIVE (NEGATIVE); RBC, URINE AUTO 0 /HPF (0-3); SQUAMOUS EPITHELIAL CELL UR AU 1 /HPF (0-6); WBC, URINE AUTO 0 /HPF (0-3)
== END ==
LOC: M PLALAB 14:38
PROVIDERS: ATTEND Internal Medicine Cardiovascular Disease
DX: F11.21 Opioid dependence, in remission (principal); B17.10 Acute hepatitis C without hepatic coma; Z79.899 Other long term (current) drug therapy; F41.9 Anxiety disorder, unspecified

== ENCOUNTER → 2023-06-13 | Outpatient (CLI) | payer MEDICAID, OTHER ==
[2023-06-13 16:39] LABS: HEPATITIS B SURFACE ANTIBODY POSITIVE (POSITIVE)
[2023-06-13 17:04] LABS: HIV 1&2 SCREEN NEGATIVE (NEGATIVE)
== END ==
LOC: M PLALAB 11:53
PROVIDERS: ATTEND Internal Medicine Infectious Disease
DX: B18.2 Chronic viral hepatitis C (principal)

== ENCOUNTER → 2023-06-19 | Outpatient (REF) | payer OTHER ==
[2023-06-23 23:07] LABS: HEPATITIS C VIRUS GENOTYPE 2b (.)
== END ==
LOC: M LAB REF 13:36
PROVIDERS: ATTEND Internal Medicine Infectious Disease
DX: B18.2 Chronic viral hepatitis C (principal)

== ENCOUNTER → 2023-10-03 | Outpatient (CLI) | payer OTHER | LOC: M PLALAB 10:49 → M LAB 10:49 | PROVIDERS: ATTEND Internal Medicine Infectious Disease | DX: Z53.9 Procedure and treatment not carried out, unspecified reason (principal) ==

== ENCOUNTER → 2023-11-08 | Outpatient (CLI) | payer OTHER ==
[2023-11-08 16:29] LABS: ALKALINE PHOSPHATASE 57 U/L (46-116); ALT/SGPT 16 U/L (7.0-40); AST/SGOT 13 U/L (<34); BILIRUBIN,DIRECT < 0.1 MG/DL (<0.4); BILIRUBIN,TOTAL 0.3 MG/DL (0.3-1.2); TOTAL PROTEIN 6.9 G/DL (5.7-8.2)
== END ==
LOC: M PLALAB 13:43
PROVIDERS: ATTEND Internal Medicine Infectious Disease
DX: B18.2 Chronic viral hepatitis C (principal)

== ENCOUNTER → 2024-01-02 | Outpatient (CLI) | payer OTHER ==
[2024-01-02 14:13] LABS: BASO % 0.5 % (0.0-1.0); EOS # 0.2 10^3/uL (0.0-0.5); HEMATOCRIT 42.3 % (36.0-47.0); HEMOGLOBIN 14.2 g/dl (12.0-15.5); LYMPH # 1.9 10^3/uL (1.5-5.0); LYMPH % 23.7 % (24.0-44.0); MEAN CORPUSCULAR HEMOGLOBIN 30.5 pg (27.0-33.0); MEAN CORPUSCULAR HGB CONC 33.6 g/dl (32.0-36.5); MONO # 0.6 10^3/uL (0.0-0.8); NEUTROPHILS # 5.3 10^3/uL (1.5-8.5); NEUTROPHILS % 65.7 % (36.0-66.0); PLATELET COUNT, AUTOMATED 177 10^3/uL (150-450); RED BLOOD COUNT 4.65 10^6/uL (4.00-5.40)
[2024-01-02 14:39] LABS: ALBUMIN 3.8 G/DL (3.2-5.2); BILIRUBIN,DIRECT 0.1 MG/DL (<0.4); BILIRUBIN,TOTAL 0.4 MG/DL (0.3-1.2); TOTAL PROTEIN 6.7 G/DL (5.7-8.2)
[2024-01-03 14:09] LABS: HEPATITIS C QUANTITATION HCV Not Detected IU/mL (.)
== END ==
LOC: M PLALAB 09:16
PROVIDERS: ATTEND Internal Medicine Infectious Disease
DX: B18.2 Chronic viral hepatitis C (principal)